=== PATIENT | female | born 1990 | race Caucasian/White ===

== ENCOUNTER 2016-09-17 11:00 | Inpatient (IN) | payer OTHER ==
[2016-09-17] MEDS ORDERED: TERBUTALINE SULFATE 1 MG/ML VIAL IV PRN (11:20)
[2016-09-17] MEDS ORDERED: OXYTOCIN/RINGERS LACTATE 1,000 ML IV PRN (11:20)
[2016-09-17] MEDS ORDERED: LIDOCAINE 1% 30 ML SDV SC PRN (11:20)
[2016-09-17] MEDS ORDERED: OLIVE OIL 118 ML BTL MISC PRN (11:20)
[2016-09-17] MEDS ORDERED: LR 1,000 ML IV PRN (11:20)
[2016-09-17] MEDS ORDERED: EPSOM SALT 454 GM TP PRN (11:20)
[2016-09-17 11:56] LABS: % IMMATURE GRANULYOCYTES 1.2 % (0.0-1.1); ABSOLUTE IMMATURE GRANULOCYTES 0.11 10^3/uL (0.00-0.10); ADD DIFF? NO; ADD MORPH? NO; ADD SCAN? NO; ATYPICAL LYMPHOCYTE FLAG 10 (0-99); FRAGMENT RBC FLAG 0 (0-99); HEMATOCRIT 33.4 % (38.0-47.0); HEMOGLOBIN 10.8 g/dL (12.6-16.3); LEFT SHIFT FLG 10 (0-99); LIPEMIA HEMOLYSIS FLAG 80 (0-99); MEAN CELL HEMOGLOBIN CONCENTR. 32.3 g/dL (32.4-36.7); MEAN CELL VOLUME 86.5 fL (81.5-99.8); MEAN PLATELET VOLUME 10.5 fL (8.7-11.7); PLATELET CLUMPS FLAG 0 (0-99); PLATELET COUNT 175 10^3/uL (150-400); RED BLOOD CELL COUNT 3.86 10^6/uL (4.18-5.33); RED CELL DISTRIBUTION WIDTH 14.1 % (11.5-15.2)
[2016-09-17] MEDS ORDERED: CALCIUM CARBONATE 500 MG CHEWABLE TAB PO PRN (12:35)
--- NOTE | 2016-09-17 12:38 | OBPROG ---
OBG Progress Note Assessment/Plan: Assessment: cat 1 fhr arom meconium fluid continuous monitoring exam -0 cephalic Plan:expectant management of labor 09/17/16 12:36 Subjective: Doing well. Feeling greater pressure Objective: 09/17/16 11:45 Patient ABO/Rh O NEGATIVE 09/17/16 11:45 - SVE Dilation (cm): 5 Effacement (%): 90 Station: 0 Current Contraction Pattern: Regular FHR (bpm): 135 FHR Pattern Variability: Moderate FHR Category: 1 Membranes: AROM Amniotic Fluid Color: Meconium Stained-Light - Physical Exam General Appearance: WD/WN, alert, no apparent distress Neck: non-tender Respiratory: chest non-tender, lungs clear, normal breath sounds Cardiac/Chest: regular rate, rhythm Abdomen: normal bowel sounds Membranes: AROM Amniotic Fluid Color: meconium stained-light Extremities: normal range of motion, non-tender, Sami's sign (negative bilaterally) DTR- Lower Extremities: Knee (R): 1+, Knee (L): 1+ (no clonus) Skin: normal color, warm/dry Neuro/Psych: no motor/sensory deficits, alert, normal mood/affect, oriented x 3 ICD10 Worksheet Patient Problems: Problems Problem Status Onset labor Acute
--- NOTE | 2016-09-17 13:02 | GHP ---
[f rep st] HISTORY AND PHYSICAL DATE OF ADMISSION: 09/17/2016 HPI: This patient is a 1, para 0, with an EDC of 09/22/2016, which gives her a gestational age of 39 and 2/7 weeks who came to the office on 2016 early a.m. with complaints of regular contractions times several days. On exam, patient was 4-5 cm, 90% effaced, 0 station. Mid, soft, cephalic. Patient was encouraged to go to Labor and Delivery for admit. MEDICAL HISTORY: Patient has a history of depression and anxiety. Also has a history of IBS as well as being dairy sensitive. GYNECOLOGICAL HISTORY: Patient has a history of ovarian cysts as well as OCP use and condom use. SURGICAL HISTORY: Previous wisdom teeth extraction. HISTORY: Patient is a primi with no significant history. FAMILY MEDICAL HISTORY: Noncontributory Social history: , nonsmoker, occ alcohol when not . LABS: Patient is O negative. Antibody positive. Rubella nonimmune. RPR nonreactive. Hepatitis negative. HIV negative. Pap and GC/CT were negative. Patient is GBS negative. PHYSICAL EXAMINATION: Patient is awake, alert, oriented x3. Lungs are clear bilaterally. Bowel sounds are positive in all 4 quadrants. DTRs are 1+ bilaterally. No clonus. Homans' sign is negative bilaterally. On palpation of uterus, patient is jw every 4-5 minutes. Contractions feel mild-to- moderate. Psych: Patient is coping well and states has minimal pain although states feeling greater pressure. On exam in labor and delivery, patient was 5 cm, 90% effaced, 0 station, cephalic. AROM of fluid revealed meconium in the fluid. Patient will now be on continuous monitoring. PLAN OF CARE: 1. GBS negative. 2. AROM for meconium fluid. 3. Expectant management of labor. /[id number]/MODL MTDD
[2016-09-17] MEDS ORDERED: LIDOCAINE 1% 30 ML SDV ONE (13:27)
[2016-09-17] MEDS ORDERED: MISOPROSTOL 200 MCG TAB ONE (13:28)
[2016-09-17] MEDS ORDERED: AMMONIA AROMATIC 1 EACH AMP IH ONE (13:28)
[2016-09-17] MEDS ORDERED: fentaNYL 2MCG/ML/BUP 0.1% RTU 100 ML BAG EP ONE (14:46)
[2016-09-17] MEDS ORDERED: fentaNYL 100 MCG/2 ML INJ ONE (14:46)
[2016-09-17] MEDS ORDERED: BUPIVACAINE 0.25% 30 ML SDV ONE (14:46)
[2016-09-17] MEDS ORDERED: PHENYLEPHRINE HCL 100 MCG/ML SYR ONE (14:47)
--- NOTE | 2016-09-17 17:42 | OBPROG ---
OBG Progress Note Assessment/Plan: Assessment: cat 2 fhr arom meconium fluid continuous monitoring exam 10/100/+1 cephalic coping well feeling pressure comfortable with epidural blood tinged fluid vaginally Plan:will begin to push with contractions/ dr. garcia aware of POC 09/17/16 12:36 09/17/16 17:40 Objective: 09/17/16 11:45 Patient ABO/Rh O NEGATIVE 09/17/16 11:45 - SVE Dilation (cm): 10 Effacement (%): 100 Station: +1 Current Contraction Pattern: Regular FHR (bpm): 135 FHR Pattern Variability: Moderate FHR Category: 2 Membranes: AROM Amniotic Fluid Color: Blood Tinged ICD10 Worksheet Patient Problems: Problems Problem Status Onset labor Acute
--- NOTE | 2016-09-17 19:43 | OBPROC ---
- Labor and Delivery Onset of Contractions Date: 09/17/16 Onset of Contractions Time: 10:00 Onset of Contractions Type: Spontaneous Rupture of Membranes Date: 09/17/16 Rupture of Membranes Time: 12:29 Rupture of Membranes Type: Artificial Amniotic Fluid Color: Meconium Stained-Moderate Delivery Type: Spontaneous Placenta Delivery Date: 09/17/16 Placenta Delivery Time: 19:10 Episiotomy/Laceration: 2nd Degree, Other (Specify) (right labial) Repair: 3-0, Vicryl EBL: 400 Complications: Nuchal Cord - Medications Labor Augmentation/Induction Meds Used: None Anesthesia: Epidural - Info Infant A Delivery Date: 09/17/16 Delivery Time: 18:54 Sex of : Female Score (1 Min): 7 Score (5 Min): 9
[2016-09-17] MEDS ORDERED: HYDROCODONE/APAP 5/325 TAB PO PRN (19:44)
[2016-09-17] MEDS ORDERED: HYDROCORTISONE 0.5% CREAM TP PRN (19:44)
[2016-09-17] MEDS ORDERED: ACETAMINOPHEN 325 MG TAB PO PRN (19:44)
[2016-09-17] MEDS ORDERED: SIMETHICONE 80 MG TAB CHEW PO PRN (19:44)
[2016-09-17] MEDS: IBUPROFEN 600 MG TAB PO PRN (20:00)
[2016-09-18] MEDS: IBUPROFEN 600 MG TAB PO PRN ×4 (02:45→22:15)
--- NOTE | 2016-09-18 08:02 | OBPROG ---
OBG Progress Note Assessment/Plan: Assessment: 1) s/p PPd # 1- pt is stable 2) Anemia - pt is asymptomatic Plan: Continue routine pp care Encourage ambulation Will start iron BID Plan for d/c home in am 5/6 09/18/16 07:59 Subjective: Pt seen and examined. Doing well, no complaints. Her "bottom is sore." Minimal cramping. Moderate lochia. Pt is OOB, renate regular diet, voiding and passing flatus. No BM. Some difficulty with BF and baby girl's latch. Objective: 09/18/16 05:30 Patient ABO/Rh O NEGATIVE 09/17/16 11:45 Temp Pulse Resp BP Pulse Ox 36.6 C 99 16 107/77 95 09/18/16 01:30 09/18/16 01:30 09/18/16 01:30 09/18/16 01:30 09/18/16 01:30 Uterine Position/Fundal Height: Umbilicus -2 Uterine Tone: Firm - Physical Exam General Appearance: WD/WN, alert, no apparent distress Respiratory: lungs clear, normal breath sounds Cardiac/Chest: regular rate, rhythm Abdomen: normal bowel sounds, non-tender, soft, flatus (+) Genitourinary: laceration (intact), lochia (moderate) Extremities: non-tender, normal inspection Neuro/Psych: alert, normal mood/affect, oriented x 3 ICD10 Worksheet Patient Problems: Problems Problem Status Onset Status post normal vaginal delivery Acute labor Acute
[2016-09-18] MEDS: IRON POLYSAC/IRON HEME 28 MG TAB PO SCH ×2 (09:45→22:15)
[2016-09-18] MEDS: DOCUSATE SODIUM 100 MG CAP PO PRN ×2 (09:45→22:16)
--- NOTE | 2016-09-19 07:45 | OBPROG ---
OBG Progress Note Assessment/Plan: Assessment: 1) s/p PPD # 2- pt is stable 2) Anemia - pt is asymptomatic Plan: Continue routine pp care Plan for d/c home today Instructions reviewed with pt No Rx given Cont PNV and iron Pelvic rest RTC in 4 and 6 weeks for pp visit 09/19/16 07:43 Subjective: Pt seen and examined. Doing well with no complaints. Minimal cramping. Moderate lochia. Chetna reg diet, voiding, passing flatus. No BM yet. BF without difficulty. Objective: 09/18/16 05:30 Patient ABO/Rh O NEGATIVE 09/17/16 11:45 Temp Pulse Resp BP Pulse Ox 36.4 C 78 18 106/76 96 09/18/16 20:00 09/18/16 20:00 09/18/16 20:00 09/18/16 20:00 09/18/16 08:00 Uterine Position/Fundal Height: Umbilicus -2 Uterine Tone: Firm - Physical Exam General Appearance: WD/WN, alert, no apparent distress Respiratory: lungs clear, normal breath sounds Cardiac/Chest: regular rate, rhythm Abdomen: normal bowel sounds, non-tender, soft, flatus (+) Genitourinary: laceration (intact), lochia (moderate) Extremities: non-tender, normal inspection Neuro/Psych: alert, normal mood/affect, oriented x 3 ICD10 Worksheet Patient Problems: Problems Problem Status Onset Status post normal vaginal delivery Acute labor Acute
[2016-09-19] MEDS: IRON POLYSAC/IRON HEME 28 MG TAB PO SCH (08:25)
[2016-09-19] MEDS: DOCUSATE SODIUM 100 MG CAP PO PRN (08:25)
[2016-09-19] MEDS: IBUPROFEN 600 MG TAB PO PRN (08:25)
[2016-09-19 08:54] VITALS: BP 106/66; PULSE 82; RESP 17; TEMP 98.5; O2SAT 98
== END 2016-09-19 13:20 | disposition home or self-care (01) | DRG 775 ==
LOC: FLD 11:00 → FOB 21:00
PROVIDERS: ADMIT Obstetrics & Gynecology; ATTEND Obstetrics & Gynecology
DX: O70.1 Second degree perineal laceration during delivery (principal); O69.81X0 Labor and delivery complicated by cord around neck, without compression, not applicable or unspecified; O77.0 Labor and delivery complicated by meconium in amniotic fluid; Z3A.39 39 weeks gestation of pregnancy; Z37.0 Single live birth
CPT/HCPCS: J2370; J2590; J3010

== ENCOUNTER → 2016-09-24 | Outpatient (CLI) | payer OTHER | LOC: FLAB 12:58 | PROVIDERS: ATTEND Advanced Practice Midwife | DX: O92.79 Other disorders of lactation (principal) | CPT/HCPCS: G0463 ==